=== PATIENT | male | born 1975 | race Caucasian/White ===

== ENCOUNTER 2022-12-18 10:40 | Emergency (ER) | payer MEDICAID | END 2022-12-18 11:45 | disposition home or self-care (01) | LOC: JD.ED 10:40 | DX: S56.117A Strain of flexor muscle, fascia and tendon of right little finger at forearm level, initial encounter (principal); W22.09XA Striking against other stationary object, initial encounter; Y99.0 Civilian activity done for income or pay | CPT/HCPCS: 29130; 73130-26-RT; 73130-RT; 99282; 99283-25 ==